=== PATIENT | male | born 1995 | race American Indian/Alaskan Native ===

== ENCOUNTER 2020-01-24 13:10 | Emergency (ER) | payer BC ==
--- NOTE | 2020-01-24 14:46 | Emergency Department Report ---
HPI - General Chief Complaint: Allergic Reaction Time Seen by Provider: 01/24/20 14:39 - HPI HPI: 24-year-old male with a past medical history of peanut and soy allergy presented to the hospital home with complaints of acute allergic reaction after eating a sauce believed to contain peanuts. Patient has had previous reaction in the past to peanuts. Patient had been feeling like he had difficulty swallowing,, pruritic rash, some shortness of breath. Patient took a a V/Q injection which she states is similar to epinephrine 2 hours prior to my evaluation. He states that his symptoms have not improved. He also took a Benadryl unknown dose prior to arrival ED Past Medical Hx - Past Medical History Previous Medical History?: No - Social History Smoking Status: Unknown if ever smoked - Medications Home Medications: Home Medications Medication Instructions Recorded Confirmed Last Taken Type Albuterol Mdi (or & Nicu Only) 2 puff IH QID PRN #1 inh 01/24/20 Unknown Rx [ProAir HFA Inhaler] EPINEPHrine [Epipen 2-Bahman] 0.3 mg IJ ONCE PRN #1 auto.injct 01/24/20 Unknown Rx diphenhydrAMINE [Benadryl CAP] 50 mg PO Q8HR PRN #20 capsule 01/24/20 Unknown Rx predniSONE [Deltasone] 40 mg PO QDAY 5 Days tab 01/24/20 Unknown Rx ED Review of Systems ROS: Stated complaint: ALLERGIC REACTION Other details as noted in HPI Comment: All other systems reviewed and negative Physical Exam - Physical Exam Vital Signs: Vital Signs 01/24/20 14:30 Pulse Rate 66 Respiratory 16 Rate Blood Pressure 130/76 Blood Pressure 130/76 [Left] O2 Sat by Pulse 98 Oximetry Physical Exam: General: No acute distress Head: Atraumatic Eyes: normal appearance ENT: Moist mucous membranes, no posterior pharyngeal edema, no stridor, no tongue swelling Neck: Normal appearance, no midline tenderness Chest: Clear to auscultation bilaterally CV: Regular rate and rhythm Abdomen: Soft, normal bowel sounds, nontender, nondistended, no rebound or guarding Back: Normal inspection Extremity: Normal inspection, full range of motion Neuro: Alert O x 3, no facial asymmetry, speech clear, no gross motor sensory deficit Psych: Appropriate behavior Skin: Generalized pruritic hives ED Course Vital Signs 01/24/20 14:30 Pulse Rate 66 Respiratory 16 Rate Blood Pressure 130/76 Blood Pressure 130/76 [Left] O2 Sat by Pulse 98 Oximetry ED Medical Decision Making - Medical Decision Making Patient treated in the ED with Solu-Medrol, IV Benadryl, and 1 DuoNeb and reports feeling a lot better prior to discharge. Will be discharged on medications for allergic reaction Critical Care Time: No Critical care attestation.: If time is entered above; I have spent that time in minutes in the direct care of this critically ill patient, excluding procedure time. ED Disposition Clinical Impression: Acute allergic reaction, Asthma exacerbation Disposition: DC- TO HOME OR SELFCARE Is pt being admited?: No Does the pt Need Aspirin: No Condition: Stable Instructions: Asthma, Adult, How to Use an Auto-Injector Pen, Allergies, Adult Additional Instructions: Take the medication as prescribed. Follow-up with your doctor or doctor/clinic provided. Return if symptoms worsen as indicated by your discharge instructions. Prescriptions: diphenhydrAMINE [Benadryl CAP] 50 mg PO Q8HR PRN #20 capsule PRN Reason: Allergic Reaction predniSONE [Deltasone] 40 mg PO QDAY 5 Days tab EPINEPHrine [Epipen 2-Bahman] 0.3 mg IJ ONCE PRN #1 auto.injct PRN Reason: Anaphylaxis Albuterol Mdi (or & Nicu Only) [ProAir HFA Inhaler] 2 puff IH QID PRN #1 inh PRN Reason: Shortness Of Breath Referrals: BALJEET GLEZ MD [Referring] - 3-5 Days [facility] [Provider Group] - 3-5 Days PAXTON KERR MD [Staff Physician] - 3-5 Days Time of Disposition: 16:56
[2020-01-24] MEDS ORDERED: diphenhydrAMINE 50 MG/ML VIAL IV ONE (14:47)
[2020-01-24] MEDS ORDERED: methylPREDNISolone Sod Succinate 125 MG/2 ML INJ IV ONE (14:47)
[2020-01-24] MEDS ORDERED: IPRATROPIUM/ALBUTEROL SULFATE 3 ML AMPUL.NEB IH ONE (15:25)
[2020-01-24 16:51] VITALS: BP 124/68
== END 2020-01-24 18:20 | disposition home or self-care (01) ==
LOC: ED 13:10
DX: T78.40XA Allergy, unspecified, initial encounter (principal); J45.901 Unspecified asthma with (acute) exacerbation; Z79.899 Other long term (current) drug therapy; Z91.010 Allergy to peanuts; Z88.8 Allergy status to other drugs, medicaments and biological substances
CPT/HCPCS: 96374; 96375; 99283; J1200; J2930